=== PATIENT | female | born 1980 | race Hispanic/Latino ===

== ENCOUNTER 2021-12-23 17:19 | Emergency (ER) | payer OTHER ==
[~2021-12-23] VITALS: Ht 154.9 cm; Wt 119.7 kg
[2021-12-23 17:20] VITALS: BP 146/90
== END 2021-12-23 20:03 | disposition home or self-care (01) ==
LOC: EDH 17:19
DX: K46.9 Unspecified abdominal hernia without obstruction or gangrene (principal)
CPT/HCPCS: 99281